=== PATIENT | female | born 1990 | race African-American/Black ===

== ENCOUNTER 2016-08-30 11:51 | Outpatient (CLI) | payer MEDICAID ==
[2016-08-30 12:20] LABS: Hemoglobin A1c 5.2 % (4.0-6.0)
[2016-08-30 12:30] LABS: Eosinophils 2 % (0-10); Hemoglobin 11.7 g/dL (12.0-16.0); Hypochromia SLIGHT = 6-15 cells (100X) (0-5/hpf); Lymphocytes 39 % (21-51); MDiff Complete? YES; Mean Corpuscular HGB CONC 31.3 g/dL (32.0-36.0); Mean Corpuscular Hemoglobin 24.8 pg (27.0-31.0); Mean Corpuscular Volume 79.2 fl (81.0-99.0); Mean Platelet Volume 8.3 fL (7.4-10.4); Microcytosis SLIGHT = 6-15 cells (100X) (0-5/hpf); Monocytes 7 % (0-10); Neutrophil 52 % (42-75); Platelet Count 303 thou/uL (130-400); RBC Distribution Width 13.3 % (11.5-14.5); Red Blood Cell (RBC) Count 4.71 mill/uL (4.20-5.40)
[2016-08-30 12:32] LABS: White Blood Cell (WBC) Count 3.9 thou/uL (4.8-10.8)
[2016-08-30 12:48] LABS: ALT (SGPT) 11 U/L (0-55); AST (SGOT) 18 U/L (5-34); Albumin 4.1 g/dL (3.5-5.0); Alkaline Phosphatase 69 U/L (40-150); Anion Gap 14 mmol/L (10-20); BUN (Urea Nitrogen) 15 mg/dL (7.0-18.7); Bilirubin, Total 0.4 mg/dL (0.2-1.2); Calc. Creatinine Clearance 0 mL/min (70-130); Calcium 9.2 mg/dL (7.8-10.44); Carbon Dioxide 25 mmol/L (22-29); Cardiac Risk 2.6 (Less than 4.5); Chloride 105 mmol/L (98-107); Cholesterol 173 mg/dL (< 200 Desired); Estimated GFR-MDRD Greater than 90; Globulin 2.9 g/dL (2.4-3.5); Glucose 80 mg/dL (70-105); HDL Cholesterol 67 mg/dL (>60 Neg Risk); LDL Cholesterol, Calculated 94 mg/dL; Potassium 3.9 mmol/L (3.5-5.1); Sodium 140 mmol/L (136-145); Triglycerides 60 mg/dL (Less than 150)
[2016-08-30 13:10] LABS: Thyroid Stimulating Hormone 1.1952 uIU/mL (0.35-4.94); Vitamin D, 25 Hydroxy Less than 13.0 ng/mL (> 30.0)
[2016-09-02 13:23] LABS: Chlamydia by PCR Not Detected (NotDetected); GC by PCR Not Detected (NotDetected)
== END 2016-08-30 11:52 | disposition home or self-care (01) ==
LOC: MADLABBHPM 11:51
PROVIDERS: ATTEND Family Medicine
DX: Z01.419 Encounter for gynecological examination (general) (routine) without abnormal findings (principal)
CPT/HCPCS: 36415; 80053; 80061; 82306; 83036; 84443; 85025; 87480; 87491; 87510; 87591; 87660; 88142; G0123

== ENCOUNTER 2016-10-28 23:42 | Emergency (ER) | payer MEDICAID ==
[2016-10-29] MEDS ORDERED: Ibuprofen 600 MG TAB ONE (00:43)
== END 2016-10-29 00:59 | disposition home or self-care (01) ==
LOC: MADERS 23:42
DX: S46.911A Strain of unspecified muscle, fascia and tendon at shoulder and upper arm level, right arm, initial encounter (principal); X58.XXXA Exposure to other specified factors, initial encounter
CPT/HCPCS: 99283

== ENCOUNTER 2018-06-20 09:48 | Emergency (ER) | payer MEDICAID ==
[2018-06-20 11:05] LABS: #Eosinphils 0.1 thou/uL (0.0-0.7); #Lymphocytes 1.4 thou/uL (1.20-3.40); #Monocytes 0.6 thou/uL (0.11-0.59); #Neutrophils 3.3 thou/uL (1.40-6.50); %Basophils 0.7 % (0.0-1.0); %Eosinophils 2.4 % (0.0-10.0); %Lymphocytes 25.3 % (21.0-51.0); %Monocytes 10.3 % (0.0-10.0); %Neutrophils 61.3 % (42.0-75.0); Hemoglobin 11.4 g/dL (12.0-16.0); Mean Corpuscular HGB CONC 31.8 g/dL (32.0-36.0); Mean Corpuscular Hemoglobin 25.7 pg (27.0-31.0); Mean Corpuscular Volume 80.7 fL (78.0-98.0); Mean Platelet Volume 9.5 fL (7.4-10.4); Platelet Count 303 thou/uL (130-400); RBC Distribution Width 12.5 % (11.5-14.5); Red Blood Cell (RBC) Count 4.45 mill/uL (4.20-5.40); White Blood Cell (WBC) Count 5.4 thou/uL (4.8-10.8)
--- NOTE | 2018-06-20 11:13 | RAD ---
PA AND LATERAL OF THE CHEST: INDICATION: Chest pain. COMPARISON: None. FINDINGS: The lungs are clear. Cardiomediastinal silhouette is within normal limits. No acute osseous abnorma lity is evident. IMPRESSION: No acute cardiopulmonary abnormality. POS: [facility]
[2018-06-20 11:25] LABS: ALT (SGPT) 10 U/L (8-55); AST (SGOT) 16 U/L (5-34); Alkaline Phosphatase 62 U/L (40-150); Anion Gap 11 mmol/L (10-20); BUN (Urea Nitrogen) 10 mg/dL (7.0-18.7); Bilirubin, Total 0.4 mg/dL (0.2-1.2); Calc. Creatinine Clearance 0 mL/min (70-130); Calcium 9.4 mg/dL (7.8-10.44); Carbon Dioxide 26 mmol/L (22-29); Chloride 107 mmol/L (98-107); Estimated GFR-MDRD Greater than 90; Glucose 86 mg/dL (70-105); Potassium 3.9 mmol/L (3.5-5.1); Sodium 140 mmol/L (136-145)
[2018-06-20 11:27] LABS: CKMB 2.1 ng/mL (0-6.6); Troponin I Less than 0.010 ng/mL (< 0.028)
== END 2018-06-20 11:44 | disposition home or self-care (01) ==
LOC: MADERS 09:48
DX: R07.2 Precordial pain (principal)
CPT/HCPCS: 36415; 71046; 80053; 82553; 84484; 85025; 93005; 94760

== ENCOUNTER 2018-11-13 22:16 | Emergency (ER) | payer MEDICAID | END 2018-11-13 23:30 | disposition home or self-care (01) | LOC: MADERS 22:16 | DX: S39.012A Strain of muscle, fascia and tendon of lower back, initial encounter (principal); V43.52XA Car driver injured in collision with other type car in traffic accident, initial encounter | CPT/HCPCS: 99283 ==

== ENCOUNTER 2019-04-04 23:42 | Emergency (ER) | payer SELFPAY ==
[2019-04-04] MEDS ORDERED: Ibuprofen 800 MG TAB ONE (23:54)
[2019-04-05] MEDS ORDERED: HYDROcodone/Acetaminophen 5/325 mg Tablet ONE (00:01)
--- NOTE | 2019-04-05 00:02 | RAD ---
EXAM: 3 views of the right ankle HISTORY: Ankle pain after injury COMPARISON: None FINDINGS: 3 views of the right ankle shows a spiral fracture of the distal fibula. There is a fractur e of the medial malleolus and likely a fracture of the posterior malleolus. Surrounding soft tissue swelling is seen. IMPRESSION: Trimalleolar right ankle fracture
== END 2019-04-05 00:57 | disposition home or self-care (01) ==
LOC: EEVIPCON 23:42 → MADERS 23:42
DX: S82.851A Displaced trimalleolar fracture of right lower leg, initial encounter for closed fracture (principal); W51.XXXA Accidental striking against or bumped into by another person, initial encounter
CPT/HCPCS: 29515

== ENCOUNTER 2019-09-09 12:53 | Emergency (ER) | payer OTHER, SELFPAY ==
[2019-09-09] MEDS ORDERED: Ketorolac Tromethamine 30 MG/ML VIAL ONE (13:18)
== END 2019-09-09 13:37 | disposition home or self-care (01) ==
LOC: MADERS 12:53
DX: K08.89 Other specified disorders of teeth and supporting structures (principal); Z98.818 Other dental procedure status
CPT/HCPCS: 96372; 99282; J1885

== ENCOUNTER 2020-03-18 16:18 | Emergency (ER) | payer MEDICAID, OTHER ==
[2020-03-18] MEDS ORDERED: Dexamethasone 4 MG TAB ONE (16:37)
== END 2020-03-18 17:00 | disposition home or self-care (01) ==
LOC: MADERS 16:18
DX: T78.40XA Allergy, unspecified, initial encounter (principal)
CPT/HCPCS: 99282; J8540

== ENCOUNTER 2020-10-04 08:11 | Emergency (ER) | payer SELFPAY ==
[2020-10-04] MEDS ORDERED: Ondansetron ODT 4 MG TAB ONE (08:46)
== END 2020-10-04 09:35 | disposition home or self-care (01) ==
LOC: MADERS 08:11
DX: R11.2 Nausea with vomiting, unspecified (principal); R05 Cough; Z79.899 Other long term (current) drug therapy
CPT/HCPCS: 71045; Q0162

== ENCOUNTER 2021-01-18 07:29 | Emergency (ER) | payer SELFPAY ==
[2021-01-18 08:02] LABS: Pregnancy Test - Urine (BHCG) Negative (Negative)
[2021-01-18 08:03] LABS: Clarity Clear (Clear); Pregu Control Background? CLEAR/WHITE (CLR/WHITE); Pregu Control Bar Appear? YES (CONTROL BAR); pH, Urine 5.5 (5.0-9.0)
[2021-01-18 08:04] LABS: Bilirubin Negative (Negative); Blood, Urine Small (Negative); Glucose, Urine (Dipstick) Negative (Negative); Ketone, Urine Negative (Negative); Leukocyte Negative (Negative); Nitrite Negative (Negative); Protein, Urine (Dipstick) Negative (Neg-Trace)
[2021-01-18 08:07] LABS: Bacteria/HPF 1+ HPF (None Seen); RBC/HPF 0-3 HPF (0-3); WBC/HPF 0-3 HPF (0-3)
[2021-01-18] MEDS ORDERED: Ondansetron ODT 4 MG TAB ONE (08:37)
== END 2021-01-18 08:35 | disposition home or self-care (01) ==
LOC: MADERS 07:29
DX: K52.9 Noninfective gastroenteritis and colitis, unspecified (principal)
CPT/HCPCS: 81003; 81015; 81025; 99284; Q0162

== ENCOUNTER 2021-02-08 11:41 | Emergency (ER) | payer SELFPAY | END 2021-02-08 13:00 | disposition home or self-care (01) | LOC: MADERS 11:41 | DX: B34.9 Viral infection, unspecified (principal) | CPT/HCPCS: 99283 ==

== ENCOUNTER 2021-05-20 00:16 | Emergency (ER) | payer SELFPAY ==
[2021-05-20] MEDS ORDERED: Ibuprofen 600 MG TAB ONE (00:40)
[2021-05-20] MEDS ORDERED: Acetaminophen 500 MG TAB ONE (00:40)
[2021-05-20 01:23] LABS: ALT (SGPT) 17 U/L (8-55); AST (SGOT) 22 U/L (5-34); Albumin 4.3 g/dL (3.5-5.0); Alkaline Phosphatase 72 U/L (40-110); Anion Gap 13 mmol/L (10-20); BUN (Urea Nitrogen) 14 mg/dL (7.0-18.7); Bilirubin, Total 0.2 mg/dL (0.2-1.2); Calc. Creatinine Clearance 0 mL/min (70-130); Calcium 9.9 mg/dL (7.8-10.44); Carbon Dioxide 20 mmol/L (22-29); Chloride 109 mmol/L (98-107); Globulin 3.6 g/dL (2.4-3.5); Glucose 111 mg/dL (70-105); Potassium 3.4 mmol/L (3.5-5.1); Protein, Total 7.9 g/dL (6.0-8.3); Sodium 139 mmol/L (136-145)
[2021-05-20] MEDS ORDERED: Iopamidol 370 76% 100 ML VIAL ONE (11:58)
== END 2021-05-20 02:30 | disposition home or self-care (01) ==
LOC: MADERS 00:16
DX: S00.83XA Contusion of other part of head, initial encounter (principal); R49.0 Dysphonia; Y04.0XXA Assault by unarmed brawl or fight, initial encounter
CPT/HCPCS: 70486; 70492; 80053; Q9967

== ENCOUNTER 2022-06-05 07:10 | Emergency (ER) | payer MEDICAID ==
[2022-06-05] MEDS ORDERED: Ketorolac Tromethamine 60 MG/2 ML VIAL ONE (07:33)
[2022-06-05] MEDS ORDERED: Dexamethasone 10 MG/ML VIAL ONE (07:33)
== END 2022-06-05 08:29 | disposition home or self-care (01) ==
LOC: MADERS 07:10
DX: J02.9 Acute pharyngitis, unspecified (principal); R51.9 Headache, unspecified
CPT/HCPCS: 70450; 87081; 87430; 96372; J1100; J1885

== ENCOUNTER 2023-03-30 15:44 | Emergency (ER) | payer MEDICAID | END 2023-03-30 16:28 | disposition home or self-care (01) | LOC: MADERS 15:44 | DX: S30.811A Abrasion of abdominal wall, initial encounter (principal); L90.5 Scar conditions and fibrosis of skin; X58.XXXA Exposure to other specified factors, initial encounter | CPT/HCPCS: 99283 ==

== ENCOUNTER 2024-01-25 09:01 | Emergency (ER) | payer OTHER | END 2024-01-25 09:28 | disposition home or self-care (01) | LOC: MADERS 09:01 | DX: K02.9 Dental caries, unspecified (principal); H92.01 Otalgia, right ear | CPT/HCPCS: 99282 ==